=== PATIENT | male | born 1960 | race Two or more races ===

== ENCOUNTER 2018-02-27 20:08 | Emergency (ER) | payer OTHER ==
--- NOTE | 2018-02-27 20:47 | C.PDOC ---
History Of Present Illness Patient c/o left knee pain and swelling after he fell at work earlier today. Patient sts he was continuing working and noticed swelling when he was changing clothing after work. Patient found to have severely elevated BP, he sts he run out of Coreg 20 mg 3 days ago. Patient denies Chest pain/SOB/Headache/numbness. Time Seen by Provider: 02/27/18 20:33 Chief Complaint (Nursing): Lower Extremity Problem/Injury Past Medical History Reviewed: Historical Data, Nursing Documentation, Vital Signs Vital Signs: Last Vital Signs Temp 97.8 F 02/27/18 21:35 Pulse 81 02/27/18 21:35 Resp 20 02/27/18 21:35 BP 167/100 H 02/27/18 21:35 Pulse Ox 96 02/27/18 21:39 - Medical History PMH: HTN - [facility] COLONOSCOPY (03/12/06) Family History: States: No Known Family Hx - Social History Hx Alcohol Use: No Hx Substance Use: No - Immunization History Hx Tetanus Toxoid Vaccination: No Hx Influenza Vaccination: No Hx Pneumococcal Vaccination: No Review Of Systems Except As Marked, All Systems Reviewed And Found Negative. Physical Exam - Physical Exam Appears: Well, No Acute Distress Skin: Normal Color, Warm, No Rash Head: Atraumatic, Normacephalic Eye(s): bilateral: Normal Inspection Neck: Normal ROM Chest: Symmetrical, No Deformity, No Tenderness Cardiovascular: Rhythm Regular Respiratory: Normal Breath Sounds Gastrointestinal/Abdominal: Soft, No Tenderness Extremity: Tenderness (left knee), No Calf Tenderness, No Deformity, Swelling ( left knee over patella) Neurological/Psych: Oriented x3, Normal Speech, Normal Cognition, Normal Motor, Normal Sensation ED Course And Treatment O2 Sat by Pulse Oximetry: 96 Progress Note: Plan: Left knee xray, Coreg 40 mg po. On re-evaluation BP still elevated, Clonidine po given. On the second re-evaluation BP is going down. Patient is asymptomatic. Knee immobilizer applied by CP and checked by me. Patient is stable to be d/c home with PMD and Ortho follow up. Disposition - Disposition Referrals: Rajendra Cleaning MD [Staff Provider] - Disposition: HOME/ ROUTINE Disposition Time: 21:36 Condition: STABLE Additional Instructions: Follow up with PMD and Orthopedist within -2 days. Return to ED if feel worse. Prescriptions: Carvedilol [Coreg CR] 20 mg PO DAILY #30 cer Ibuprofen [Motrin Tab] 600 mg PO Q8 #30 tab Instructions: Knee Pain (DC) Forms: [facility] ([place]), Work Excuse - Clinical Impression Clinical Impression: Contusion of knee, Uncontrolled hypertension
[2018-02-27 21:19] VITALS: PULSE 81; RESP 20
[2018-02-27 21:36] VITALS: BP 167/100; TEMP 97.8
[2018-02-27 21:39] VITALS: O2SAT 96
--- NOTE | 2018-02-28 10:29 | RAD ---
PROCEDURE: Left Knee Radiographs. HISTORY: Pain. COMPARISON: None. FINDINGS: BONES: No acute displaced fracture or bone destruction. Bone alignment is normal. There is diffuse bone demineralization. JOINTS: There is severe tricompartmental degenerative osteoarthrosis, worse in the medial compartment with reduced joint spaces, marginal osteophytes and tibial spiking. JOINT EFFUSION: None. OTHER FINDINGS: There is curvilinear calcification medial to the medial femoral condyles. IMPRESSION: Severe tricompartmental degenerative osteoarthrosis, worse in the medial compartment and small suprapatellar joint effusion. Damir-Stieda syndrome.
== END 2018-02-27 21:50 | disposition home or self-care (01) ==
LOC: C.ER 20:08
DX: S80.02XA Contusion of left knee, initial encounter (principal); W19.XXXA Unspecified fall, initial encounter; Y99.0 Civilian activity done for income or pay; I10 Essential (primary) hypertension